=== PATIENT | male | born 1990 | race Caucasian/White ===

== ENCOUNTER 2020-02-11 00:01 | Emergency (ER) | payer OTHER ==
[~2020-02-11] VITALS: Ht 170.2 cm; Wt 63.5 kg
[2020-02-11 03:10] VITALS: BP 128/78
== END 2020-02-11 03:10 | disposition short-term general hospital (02) ==
LOC: ER 00:01
DX: H40.212 Acute angle-closure glaucoma, left eye (principal); Z98.890 Other specified postprocedural states

== ENCOUNTER 2020-03-06 00:38 | Emergency (ER) | payer OTHER ==
[~2020-03-06] VITALS: Ht 172.7 cm; Wt 63.5 kg
[2020-03-06 04:25] VITALS: BP 125/88
== END 2020-03-06 04:16 | disposition short-term general hospital (02) ==
LOC: ER 00:38
DX: H40.89 Other specified glaucoma (principal); H54.7 Unspecified visual loss; Z98.890 Other specified postprocedural states